=== PATIENT | female | born 2000 | race Caucasian/White ===

== ENCOUNTER 2022-01-09 06:00 | Inpatient (IN) | payer OTHER ==
--- NOTE | 2022-01-08 07:30 | P.HPOB ---
History of Present Illness H&P Date: 01/08/22 Chief Complaint: Postdates induction of labor This patient is a pleasant 21-year-old 2 para 1 female estimated date of confinement 01/09/2000 estimated gestational age 40 and one sevenths weeks who presents to labor and delivery for requested induction of labor. Patient's care has been uncomplicated with the exception of late to seek care. Patient is now postdates and requesting induction of labor. Review of Systems Genitourinary: Reports Menstruation: Reports amenorrhea Past Medical History Past Medical History: No Reported History Additional Past Medical History / Comment(s): Previous term vaginal delivery that was precipitous. 8 lbs. 6 oz. baby girl Past Surgical History: No Surgical Hx Reported Past Anesthesia/Blood Transfusion Reactions: No Reported Reaction Smoking Status: Never smoker Past Alcohol Use History: None Reported Past Drug Use History: None Reported Exam - OBG Physical Exam Abdomen: bowel sounds normal, no diffuse tenderness, no bruit present, no guarding noted, no hepatomegaly, no splenomegaly, no mass Vulva: both: normal Vagina: normal moisture, no discharge Cervix: no lesion (Cervix in the office was 2 cm dilated -2 station), no discharge Uterus: enlarged (Fundal height was 37 cm) Results labs show that she is B positive, rubella nonimmune, RPR nonreactive, hepatitis B negative, HIV is nonreactive, Glucola was normal, group B strep was negative, ultrasounds shows normal growth Assessment and Plan Assessment: This is a pleasant 21-year-old 2 para 1 female 40 and one sevenths weeks gestation who is admitted to labor and delivery for postdates induction of labor. Plan is induction of labor and anticipate vaginal delivery. (1) Postmaturity , 40-42 weeks gestation Status: Acute Code(s): O48.0 - POST-TERM SNOMED Code(s): 75488595465369 (2) Elective induction of labor planned Status: Acute Code(s): FAE7459 - SNOMED Code(s): 280606747
[2022-01-09] MEDS ORDERED: TERBUTALINE 1 MG/ML VIAL SQ PRN (06:13)
[2022-01-09] MEDS ORDERED: OXYTOCIN 30 UNITS/500 ML NS 30 UNIT in SALINE 1 500ML.BAG IV SCH ×2 (06:13→13:09)
[2022-01-09] MEDS ORDERED: CARBOPROST TROMETHAMINE 250 MCG/ML 1 ML AMP IM PRN (06:13)
[2022-01-09] MEDS ORDERED: LIDOCAINE 0.5% (PF) 5 MG/ML (50 ML SDV) SQ PRN (06:13)
[2022-01-09] MEDS ORDERED: OXYTOCIN 10 UNIT/ML 1 ML VIAL IM PRN (06:13)
[2022-01-09] MEDS ORDERED: METHYLERGONOVINE 0.2 MG/ML 1 ML AMP IM PRN (06:13)
[2022-01-09] MEDS: LACTATED RINGERS 1,000 ML IV SCH ×2 (06:35→12:35)
[2022-01-09 06:57] LABS: Basophils # (A) 0.1 k/uL (0-0.2); Basophils % (A) 1 %; Eosinophils # (A) 0.1 k/uL (0-0.7); Eosinophils % (A) 1 %; HCT 29.9 % (34.0-46.0); HGB 9.8 gm/dL (11.4-16.0); Hypochromasia Moderate; Lymphocytes % (A) 23 %; MCH 26.5 pg (25.0-35.0); MCHC 32.8 g/dL (31.0-37.0); MCV 80.8 fL (80.0-100.0); Mean Platelet Volume 9.5; Monocytes # (A) 0.6 k/uL (0-1.0); Monocytes % (A) 6 %; Neutrophils # (A) 5.9 k/uL (1.3-7.7); Neutrophils % (A) 67 %; Platelet Count 247 k/uL (150-450); RDW 14.6 % (11.5-15.5); WBC 8.7 k/uL (3.8-10.6)
[2022-01-09] MEDS ORDERED: ZOLPIDEM 5 MG TAB PO PRN (13:09)
[2022-01-09] MEDS ORDERED: SIMETHICONE 80 MG CHEWABLE PO PRN (13:09)
[2022-01-09] MEDS ORDERED: BENZOCAINE/MENTHOL SPRAY 1 GM/SPRAY AEROSOL TOPICAL PRN (13:09)
[2022-01-09] MEDS ORDERED: bisacodyL 10 MG SUPP RECTAL PRN (13:09)
[2022-01-09] MEDS ORDERED: IBUPROFEN 600 MG TAB PO PRN (13:09)
[2022-01-09] MEDS ORDERED: ACETAMINOPHEN TAB 325 MG TAB PO PRN (13:09)
[2022-01-09] MEDS ORDERED: LANOLIN CREAM 5 GM TUBE TOPICAL PRN (13:09)
[2022-01-09] MEDS ORDERED: HYDROCORTISONE 2.5% RECTAL CREAM 30 GM TUBE RECTAL PRN (13:09)
[2022-01-09] MEDS ORDERED: diphenhydrAMINE 25 MG CAP PO PRN (13:09)
[2022-01-09] MEDS ORDERED: diphenhydrAMINE 50 MG/ML 1 ML VIAL IVP PRN (13:09)
[2022-01-09] MEDS: SENNOSIDES-DOCUSATE SODIUM 1 EACH TAB PO SCH ×2 (13:15→20:01)
--- NOTE | 2022-01-09 18:06 | P.PROBDLV ---
Vaginal Delivery Note - . Vaginal Delivery Note: Normal vaginal delivery viable female Apgars 9 and 9 delivery time was 1251 hrs. Please see dictated H&P for intimate details of this patient's admission. In brief summary this is a pleasant 21-year-old 2 para 1 female 40 and one sevenths weeks who is admitted to labor and delivery for requested postdates induction of labor. On admission patient is 3 cm dilated has artificial rupture membranes for clear fluid. Labor is induced with Pitocin per protocol. Patient's labor progresses quickly and she does get 1 dose of Stadol and then an epidural for pain control. Patient gets to complete pushes approximately 2 or 3 times pushes the head to the perineum. Posterior perineum was supported. We then have delivery of the infant's head is in the straight occiput anterior presentation. Mouth and nares are bulb suctioned. There is no evidence of a nuchal cord. With gentle downward traction and one push we have delivery the anterior shoulder and rest of this 's body. This is a vigorous viable female infant Apgars are 9 and 9 delivery time is 1251 hrs. Infant has spontaneous respirations and good cry and grossly appears normal. is in laid on the mother's abdomen. After the umbilical cord is done pulsating, it is doubly clamped and cut appears to be trivascular. The placenta is then spontaneously delivered intact. Patient does have some transient atony that response to fundal massage and one dose of Methergine. Inspection of the perineum shows no lacerations and no repairs required. All counts are correct 3. There are no complications. Infant and mother are stable delivery room.
[2022-01-09 20:32] VITALS: RESP 16
--- NOTE | 2022-01-10 05:59 | P.PNOBGVD ---
Subjective - Subjective Patient reports: Reports appetite normal, Reports voiding normally, Reports pain well controlled, Reports ambulating normally [place]: doing well Objective - Latest Vital Signs Latest vital signs: Vital Signs Temp Pulse Resp BP Pulse Ox 01/10/22 00:00 98.5 F 95 16 118/74 96 01/09/22 20:00 98.0 F 92 16 118/71 97 01/09/22 16:00 97.6 F 84 17 117/61 97 01/09/22 15:00 97.5 F L 71 16 120/62 01/09/22 14:30 75 16 124/60 01/09/22 14:00 80 16 108/56 01/09/22 13:45 74 17 120/57 01/09/22 13:30 78 16 123/54 01/09/22 13:15 97.2 F L 88 16 119/65 99 01/09/22 13:00 86 16 133/60 01/09/22 06:43 97.4 F L 82 16 122/79 98 Intake and Output 01/09/22 01/09/22 01/10/22 14:59 22:59 06:59 Intake Total 179.033 Output Total 400 110 Balance -220.967 -110 Intake: Intake, IV Titration 179.033 Amount Oxytocin 30 Units/500 ml 179.033 Ns 30 unit In Saline 1 500ml.bag @ Per Protocol IV .Q0M [facility] Rx#:[id number] Output: Estimated Blood Loss 400 Output, Quantitative 110 Blood Loss Other: # Voids 1 1 - Exam Lungs: bilateral: normal Chest: Normal S1, Normal S2 Extremities: Present: normal Abdomen: Present: normal appearance, soft Uterus: Present: normal, firm - Labs Labs: Abnormal Lab Results - Last 24 Hours (Table) 01/09/22 Range/Units 06:40 RBC 3.70 L (3.80-5.40) m/uL Hgb 9.8 L (11.4-16.0) gm/dL Hct 29.9 L (34.0-46.0) % Assessment and Plan Assessment: day #1. Patient is resting without complaints and wishes to go home. Vital signs are stable she is afebrile. Uterus is firm nontender and she is having normal lochia. My impression this is a normal course. Plan is to continue routine care discharge home later today (1) Postmaturity , 40-42 weeks gestation Current Visit: No Status: Acute Code(s): O48.0 - POST-TERM SNOMED Code(s): 17506851656901 (2) Elective induction of labor planned Current Visit: No Status: Acute Code(s): [id number] - SNOMED Code(s): 214739845
--- NOTE | 2022-01-10 06:03 | P.DS ---
Providers Date of admission: 01/09/22 06:09 Expected date of discharge: 01/10/22 Attending physician: Raza Dallas Primary care physician: Stated None - Discharge Diagnosis(es) (1) Postmaturity , 40-42 weeks gestation Current Visit: No Status: Acute (2) Elective induction of labor planned Current Visit: No Status: Acute Hospital Course: Please see dictated H&P for intimate details of this patient's admission. Brief summary this pleasant 21-year-old 2 para 1 female 40 and one sevenths weeks gestation admitted to labor and delivery for requested postdates induction of labor. Patient is admitted quickly goes on to have a vaginal delivery viable female infant. Please see dictated delivery note. day #1 patient's felt be stable for discharge home follow up with me in 6 weeks. Procedures: Induction of labor and normal vaginal delivery Patient Condition at Discharge: Good Plan - Discharge Summary New Discharge Prescriptions: New Ibuprofen [Motrin] 600 mg PO Q6HR PRN #30 tab PRN Reason: Mild Pain (Scale 1 To 3) No Action Vits96/Iron Fum/Folic [ Tablet] 1 each PO DAILY Discharge Medication List Vits96/Iron Fum/Folic [ Tablet] 1 each PO DAILY 01/09/22 [History] Ibuprofen [Motrin] 600 mg PO Q6HR PRN #30 tab 01/10/22 [Rx] Follow up Appointment(s)/Referral(s): Raza Dallas MD [STAFF PHYSICIAN] - 02/22/22 11:15 am Patient Instructions/Handouts: Vaginal Delivery (DC) Activity/Diet/Wound Care/Special Instructions: No intercourse or anything per vagina for 6 weeks. Please call if any fever, chills, excessive vaginal bleeding, and/or abdominal pain. Discharge Disposition: HOME SELF-CARE
[2022-01-10 07:46] LABS: Basophils % (A) 0 %; Eosinophils % (A) 0 %; HCT 29.4 % (34.0-46.0); HGB 9.4 gm/dL (11.4-16.0); Hypochromasia Moderate; Lymphocytes % (A) 18 %; MCH 25.7 pg (25.0-35.0); MCV 80.3 fL (80.0-100.0); Mean Platelet Volume 9.3; Monocytes # (A) 0.6 k/uL (0-1.0); Monocytes % (A) 6 %; Neutrophils # (A) 7.9 k/uL (1.3-7.7); Neutrophils % (A) 74 %; Platelet Count 218 k/uL (150-450); RBC 3.65 m/uL (3.80-5.40); RDW 14.8 % (11.5-15.5); WBC 10.8 k/uL (3.8-10.6)
[2022-01-10 08:03] VITALS: BP 116/75; PULSE 97; TEMP 97.9
== END 2022-01-10 13:20 | disposition home or self-care (01) | DRG 807 ==
LOC: 4FBP 06:09
PROVIDERS: ADMIT Obstetrics & Gynecology; ATTEND Obstetrics & Gynecology
PROC: 10E0XZZ Delivery of Products of Conception, External Approach (ICD-10-PCS; principal; 2022-01-09)
PROC: 3E033VJ Introduction of Other Hormone into Peripheral Vein, Percutaneous Approach (ICD-10-PCS; 2022-01-09)
PROC: 10907ZC Drainage of Amniotic Fluid, Therapeutic from Products of Conception, Via Natural or Artificial Opening (ICD-10-PCS; 2022-01-09)
PROC: 4A0HXCZ Measurement of Products of Conception, Cardiac Rate, External Approach (ICD-10-PCS; 2022-01-09)
DX: O48.0 Post-term pregnancy (principal); Z37.0 Single live birth; Z3A.40 40 weeks gestation of pregnancy
CPT/HCPCS: 85025; 86850; 86900; 86901